=== PATIENT | female | born 1945 | race Caucasian/White ===

== ENCOUNTER → 2020-02-22 | Outpatient (CLI) | payer MEDICARE ==
[~2020-02-22] MED LIST: BUPR1FIL3 PO; CARI350T PO; CLON-364 PO; CYAN250013 PO; DULO30CA2 PO; DULO60CA7 PO; GABA300C10 PO; HYDR25TA6 PO; LEVO137T2 PO; LIOT5TAB10 PO; MODA200T27 PO; ONDA4TAB10 PO; PARO12.517 PO; POTA10CA PO; SILD20TA2 PO; SIMV40TA PO; TREP5TAB PO; TRIA1CAP3 PO
== END | disposition home or self-care (01) ==
LOC: CFH 15:45
PROVIDERS: ATTEND Internal Medicine Cardiovascular Disease
DX: I08.8 Other rheumatic multiple valve diseases (principal); I77.810 Thoracic aortic ectasia; I31.3 Pericardial effusion (noninflammatory); J90 Pleural effusion, not elsewhere classified; I27.21 Secondary pulmonary arterial hypertension; E78.5 Hyperlipidemia, unspecified; Z87.891 Personal history of nicotine dependence; Z99.81 Dependence on supplemental oxygen
CPT/HCPCS: 93306